=== PATIENT | female | born 1965 | race Caucasian/White ===

== ENCOUNTER 2023-02-27 07:49 | Day surgery (SDC) | payer MEDICAID ==
[~2023-02-27] VITALS: Ht 167.6 cm; Wt 108.9 kg
[2023-02-27] MEDS ORDERED: MIDAZOLAM HCL 5 MG/5 ML VIAL ONE ×2 (08:10→09:56)
[2023-02-27] MEDS ORDERED: MEPERIDINE 100 MG INJ. 100 MG/ML VIAL ONE ×2 (08:10→09:56)
[2023-02-27 08:45] VITALS: O2SAT 100
[2023-02-27 08:55] LABS: HCG,QUAL RESULT NEGATIVE (NEGATIVE)
[2023-02-27] MEDS ORDERED: DIPHENHYDRAMINE INJ 50 MG/ML VIAL ONE (10:02)
[2023-02-27 14:19] VITALS: BP_SYST 113; PULSE 72; RESP 15
== END 2023-02-27 11:13 | disposition home or self-care (01) ==
LOC: SDS 07:49 → SMU 07:50 → SDS 11:13
PROVIDERS: ATTEND Student in an Organized Health Care Education/Training Program
DX: Z12.11 Encounter for screening for malignant neoplasm of colon (principal); K57.30 Diverticulosis of large intestine without perforation or abscess without bleeding; K64.8 Other hemorrhoids; I10 Essential (primary) hypertension; E11.9 Type 2 diabetes mellitus without complications; E78.00 Pure hypercholesterolemia, unspecified; Z79.899 Other long term (current) drug therapy
CPT/HCPCS: 45378; 84703; 99153; 99152; G0378; J1200; J2250; J2175